=== PATIENT | female | born 1985 | race African-American/Black ===

== ENCOUNTER 2017-10-07 02:15 | Emergency (ER) | payer SELFPAY ==
[~2017-10-07] VITALS: Ht 175.3 cm; Wt 54.4 kg
[2017-10-07 02:20] VITALS: BP 138/89
[2017-10-07] MEDS ORDERED: LORazepam 0.5mg tab ORAL ONE (02:45)
--- NOTE | 2017-10-07 03:48 | Emergency Room Report ---
History of Present Illness General Chief Complaint: Chest Pain Source: Patient Present Illness HPI 31YOF BIBEMS For chest pain for "I'm not sure how long." States pain is substernal, nonradiating, sharp. Worse with movement. No associated shortness of breath, nausea, vomiting, pleuritic chest pain. Endorses history of high blood pressure but denies history of PE, DVT, ACS or previous AMI. Not on aspirin, Plavix. Patient states she was moving furniture at home however EMS states that patient called [place] - patient came with suitcase "in case I have to be admitted." Patient refused aspirin from EMS, refused IV access. EMS rhythm strip shows normal sinus rhythm, no ischemia or arrhythmia. Patient not really providing a lot of the history of present illness, has a sheet and blanket over her head, states that se's just "really tired and wants to sleep." I asked patient if thats the real reason why she is here, and she endorses a lot of stress, anxiety over her house and situation. Allergies: Coded Allergies: No Known Allergies (Unverified , 10/07/17) Patient History Past Medical History: HTN Past Surgical History: none Pertinent Family History: none Social History: Denies: smoking, alcohol use, drug use Last Menstrual Period: unknown Now: No Immunizations: UTD Reviewed Nursing Documentation: PMH: Agreed, PSxH: Agreed Nursing Documentation-PMH Past Medical History: No Stated History Review of Systems All Other Systems: negative except mentioned in HPI Physical Exam Vital Signs Date Time Temp Pulse Resp B/P (MAP) Pulse Ox O2 Delivery O2 Flow Rate FiO2 10/07/17 02:14 97.0 100 18 138/89 98 Room Air Sp02 EP Interpretation: reviewed, normal General Appearance: normal inspection, well appearing, no apparent distress, alert, GCS 15, non-toxic Head: normocephalic, atraumatic Eyes: bilateral eye PERRL, bilateral eye EOMI ENT: normal ENT inspection, hearing grossly normal, normal pharynx, no angioedema, normal voice, TMs + canals normal, uvula midline, moist mucus membranes Neck: normal inspection, full range of motion, supple, thyroid normal, no meningismus, no bony tend Respiratory: normal inspection, lungs clear, normal breath sounds, no rhonchi, no respiratory distress, no retraction, no accessory muscle use, no wheezing, speaking full sentences Cardiovascular #1: regular rate, rhythm, no edema, no JVD, normal capillary refill Gastrointestinal: normal inspection, normal bowel sounds, non tender, soft, no mass, no peritonitis, non-distended, no guarding, no hernia, no pulsatile mass Genitourinary: no CVA tenderness Musculoskeletal: normal inspection, back normal, normal range of motion, no calf tenderness, pelvis stable, Ada's Sign negative Neurologic: normal inspection, alert, oriented x3, responsive, card folder III-XII nml as tested, motor strength/tone normal, cerebellar normal, normal gait, speech normal Psychiatric: normal inspection, judgement/insight normal, mood/affect normal, no suicidal/homicidal ideation, no delusions Skin: normal inspection, normal color, no rash Lymphatic: normal inspection, no adenopathy Medical Decision Making Diagnostic Impression: Primary Impression: Chest pain Qualified Codes: R07.9 - Chest pain, unspecified Additional Impression: Malingering ER Course Vital signs stable, afebrile ECG is also nonischemic here Patient more interested in sleeping in the ER Was given low-dose Ativan for obvious anxiety Patient slept in the ER for multiple hours Was discharged in the morning ER course: Patient has remained stable during ED stay. Disposition: Patient is to be discharged to home. Patient is instructed to follow up with their primary care doctor within 5 days. Strict return precautions discussed with patient such as fever, chills, worsening/severe pain, nausea, vomiting, which may indicate severe illness. Patient verbalizes understanding and agrees with plan. Please note that this Emergency Department Report was dictated using [employer] technology software, occasionally this can lead to erroneous entry secondary to interpretation by the dictation equipment EKG Diagnostic Results Rate: normal Rhythm: NSR ASA given to the pt in ED: No Rhythm Strip Diag. Results EP Interpretation: yes Rate: 65 Rhythm: NSR, no PVC's, no ectopy Last Vital Signs Date Time Temp Pulse Resp B/P (MAP) Pulse Ox O2 Delivery O2 Flow Rate FiO2 10/07/17 02:14 97.0 100 18 138/89 98 Room Air Status: improved Disposition: HOME, SELF-CARE Condition: Improved Referrals: UNSPECIFIED NON-STAFF MD (PCP) Patient Instructions: Nonspecific Chest Pain DEREK OLIVARES M.D. Oct 07, 2017 03:48
[2017-10-07 04:20] VITALS: BP 125/75
[2017-10-07 06:20] VITALS: BP 125/75
[2017-10-07 06:46] VITALS: BP 118/71
--- NOTE | 2017-10-08 17:28 | Cardiology Report ---
APPROVED REPORT EKG Measurement Heart [id number] Normal sinus rhythm Normal ECG
== END 2017-10-07 06:46 | disposition home or self-care (01) ==
LOC: EDBD 02:15 → EMR 03:19
DX: Z76.5 Malingerer [conscious simulation] (principal); R07.9 Chest pain, unspecified; I10 Essential (primary) hypertension; F41.9 Anxiety disorder, unspecified
CPT/HCPCS: 93005; 99284